=== PATIENT | male | born 1930 | race Two or more races ===

== ENCOUNTER 2016-12-24 10:28 | Inpatient (IN) | payer MEDICARE, MEDICAID ==
[~2016-12-24] VITALS: Ht 162.6 cm; Wt 67.1 kg
[2016-12-24] MEDS ORDERED: ASPIRIN 325 MG TABLET ONE (10:59)
[2016-12-24] MEDS ORDERED: ASPIRIN 325 MG TABLET PO ONE (11:00)
[2016-12-24 11:09] LABS: BASOPHILS # (AUTO) 0.1 /CMM (0.0-0.2); BASOPHILS % (AUTO) 1.7 % (0.0-2.0); EOSINOPHILS # (AUTO) 0.3 /CMM (0.0-0.7); EOSINOPHILS % (AUTO) 3.7 % (0.0-6.0); HEMATOCRIT 41 % (39-51); HEMOGLOBIN 13.5 g/dL (13.5-17.5); LYMPHOCYTES # (AUTO) 2.3 /CMM (0.8-4.8); LYMPHOCYTES % (AUTO) 31.4 % (20.0-44.0); MEAN CORPUSCULAR HEMOGLOBIN 29 PG (26.0-33.0); MEAN CORPUSCULAR HGB CONC 33 g/dl (31.0-36.0); MEAN CORPUSCULAR VOLUME 90 fL (80-96); MONOCYTES # (AUTO) 0.4 /CMM (0.1-1.30); MONOCYTES % (AUTO) 5.5 % (2.0-12.0); NEUTROPHILS # (AUTO) 4.2 /CMM (1.8-8.9); NEUTROPHILS % (AUTO) 57.7 % (43.0-81.0); PLATELET COUNT (AUTO) 209 /CMM (150-450); RDW COEFFICIENT OF VARIATION 13.4 (11.5-15.0); RED BLOOD CELL COUNT(AUTO) 4.61 MIL/uL (4.5-6.0); WHITE BLOOD COUNT (AUTO) 7.3 K/uL (4.3-11.0)
[2016-12-24 11:24] LABS: INR 1.11 (0.87-1.13); PROTHROMBIN TIME 11.6 SECS (9.5-12.7)
[2016-12-24 11:26] LABS: ALANINE AMINOTRANSFERASE 16 U/L (12-78); ALBUMIN 3.7 g/dL (3.4-5.0); ALKALINE PHOSPHATASE 79 U/L (46-116); ASPARTATE AMINOTRANSFERASE 24 U/L (15-37); BILIRUBIN,TOTAL 0.3 mg/dL (0.2-1.0); CALCIUM, SERUM 8.9 mg/dL (8.5-10.1); CARBON DIOXIDE 23 mmol/L (21-32); CHLORIDE 107 mmol/L (98-107); CREATININE 0.9 mg/dL (0.6-1.3); GLUCOSE 154 mg/dL (74-106); SODIUM SERUM 138 mmol/L (136-145); TOTAL PROTEIN, SERUM 7.3 g/dL (6.4-8.2); UREA NITROGEN, BLOOD 21 mg/dL (7-18)
[2016-12-24 11:28] LABS: TROPONIN I < 0.017 ng/mL (0.00-0.056)
[2016-12-24] MEDS ORDERED: DOXA2TAB2 PO (12:01)
[2016-12-24] MEDS ORDERED: DOCU-25 PO (12:01)
[2016-12-24] MEDS ORDERED: ASPI81TA2 PO (12:01)
[2016-12-24] MEDS ORDERED: METF500T4 PO (12:01)
[2016-12-24] MEDS ORDERED: GLIM1TAB2 PO (12:01)
[2016-12-24] MEDS ORDERED: SIMV40TA5 PO (12:01)
[2016-12-24 14:00] VITALS: BP 152/85
[2016-12-24] MEDS ORDERED: Z GUARD REMEDY 2 OZ OINT TP PRN (15:30)
[2016-12-24] MEDS ORDERED: HYDROCODONE/APAP 5/325MG 1 EACH TABLET PO PRN (15:30)
[2016-12-24] MEDS ORDERED: ONDANSETRON HCL/PF 4 MG/2 ML VIAL IVP PRN (15:30)
[2016-12-24] MEDS ORDERED: MAGNESIUM HYDROXIDE 30 ML UDC PO PRN (15:30)
[2016-12-24] MEDS ORDERED: MAG HYDROX/AL HYDROX/SIMETH 30 ML UDC PO PRN (15:30)
[2016-12-24] MEDS ORDERED: ACETAMINOPHEN 325 MG TABLET PO PRN (15:30)
[2016-12-24] MEDS: PANTOPRAZOLE 40 MG TABLET.DR PO SCH (15:47)
[2016-12-24] MEDS: ASPIRIN 81 MG TAB.CHEW PO SCH (15:47)
[2016-12-24] MEDS: DOCUSATE SODIUM 100 MG CAPSULE PO SCH (15:47)
[2016-12-24 16:00] VITALS: BP 154/78
[2016-12-24] MEDS: GLIMEPIRIDE 1 MG TABLET PO SCH (17:07)
[2016-12-24] MEDS: METFORMIN 500 MG TABLET PO SCH (17:22)
[2016-12-24] MEDS: SIMVASTATIN 40 MG TABLET PO SCH (18:20)
[2016-12-24] MEDS ORDERED: IV SET PRIMARY PUMP SET 1 EA INFUS.SET MC ONE (18:48)
[2016-12-24] MEDS: IV NS 0.9% 1,000 ML IV PRN (18:57)
[2016-12-24 20:00] VITALS: BP 153/64
[2016-12-24] MEDS ORDERED: DEXTROSE 50%-WATER 50 ML DISP.SYRIN IV PRN (21:30)
[2016-12-24] MEDS: ZOLPIDEM TARTRATE 5 MG TABLET PO PRN (21:36)
[2016-12-24] MEDS: BLOOD SUGAR DIAGNOSTIC 1 EACH STRIP VI SCH (21:39)
[2016-12-25] VITALS (9 sets, daily range): BP systolic 122–180; BP diastolic 54–68
[2016-12-25] MEDS: IV NS 0.9% 1,000 ML IV PRN ×2 (06:38→23:18)
[2016-12-25] MEDS: BLOOD SUGAR DIAGNOSTIC 1 EACH STRIP VI SCH ×4 (06:41→23:13)
[2016-12-25] MEDS: PANTOPRAZOLE 40 MG TABLET.DR PO SCH ×2 (06:57→09:26)
[2016-12-25 08:11] LABS: BASOPHILS % (AUTO) 0.4 % (0.0-2.0); EOSINOPHILS # (AUTO) 0.3 /CMM (0.0-0.7); EOSINOPHILS % (AUTO) 3.8 % (0.0-6.0); HEMATOCRIT 36 % (39-51); HEMOGLOBIN 12.3 g/dL (13.5-17.5); LYMPHOCYTES # (AUTO) 2.3 /CMM (0.8-4.8); LYMPHOCYTES % (AUTO) 31.4 % (20.0-44.0); MEAN CORPUSCULAR HEMOGLOBIN 31 PG (26.0-33.0); MEAN CORPUSCULAR HGB CONC 34 g/dl (31.0-36.0); MEAN CORPUSCULAR VOLUME 90 fL (80-96); MONOCYTES # (AUTO) 0.4 /CMM (0.1-1.30); MONOCYTES % (AUTO) 5.5 % (2.0-12.0); NEUTROPHILS # (AUTO) 4.3 /CMM (1.8-8.9); NEUTROPHILS % (AUTO) 58.9 % (43.0-81.0); PLATELET COUNT (AUTO) 185 /CMM (150-450); RDW COEFFICIENT OF VARIATION 14.3 (11.5-15.0); WHITE BLOOD COUNT (AUTO) 7.4 K/uL (4.3-11.0)
[2016-12-25] MEDS: INSULIN REGULAR, HUMAN 100 UNIT/ML 3 ML VIAL SQ PRN ×2 (08:20→12:31)
[2016-12-25 08:36] LABS: ALANINE AMINOTRANSFERASE 17 U/L (12-78); ALBUMIN 3.2 g/dL (3.4-5.0); ALKALINE PHOSPHATASE 63 U/L (46-116); ASPARTATE AMINOTRANSFERASE 17 U/L (15-37); BILIRUBIN,TOTAL 0.3 mg/dL (0.2-1.0); CALCIUM, SERUM 8.5 mg/dL (8.5-10.1); CARBON DIOXIDE 24 mmol/L (21-32); CHLORIDE 110 mmol/L (98-107); CREATININE 0.7 mg/dL (0.6-1.3); GLUCOSE 137 mg/dL (74-106); PHOSPHORUS 2.5 mg/dL (2.5-4.9); POTASSIUM 3.9 mmol/L (3.5-5.1); SODIUM SERUM 143 mmol/L (136-145); TOTAL PROTEIN, SERUM 6.3 g/dL (6.4-8.2); UREA NITROGEN, BLOOD 19 mg/dL (7-18)
[2016-12-25 08:38] LABS: CHOLESTEROL 139 mg/dL (<200); HDL CHOLESTEROL 29 mg/dL (40-60); LDL 76 mg/dL (0-99); THYROID STIMULATING HORMONE 2.914 uIU/mL (0.358-3.74); TRIGLYCERIDES 167 mg/dL (30-150)
[2016-12-25] MEDS ORDERED: DOXAZOSIN MESYLATE (1 MG) 1 MG TABLET PO SCH (09:00)
[2016-12-25] MEDS: DOCUSATE SODIUM 100 MG CAPSULE PO SCH (09:24)
[2016-12-25] MEDS: ASPIRIN 81 MG TAB.CHEW PO SCH (09:25)
[2016-12-25] MEDS: METFORMIN 500 MG TABLET PO SCH ×2 (09:25→17:00)
[2016-12-25] MEDS: GLIMEPIRIDE 1 MG TABLET PO SCH ×2 (09:26→17:00)
[2016-12-25] MEDS: SIMVASTATIN 40 MG TABLET PO SCH (18:47)
[2016-12-25] MEDS: ZOLPIDEM TARTRATE 5 MG TABLET PO PRN (21:40)
[2016-12-25] MEDS: *INSULIN REGULAR(HUMULIN R)HUM 100 UNIT/ML VIAL SQ PRN (23:24)
[2016-12-26] VITALS (7 sets, daily range): BP systolic 133–174; BP diastolic 68–81
[2016-12-26] MEDS: BLOOD SUGAR DIAGNOSTIC 1 EACH STRIP VI SCH ×4 (06:08→22:01)
[2016-12-26] MEDS: GLIMEPIRIDE 1 MG TABLET PO SCH ×2 (08:10→16:49)
[2016-12-26] MEDS: DOCUSATE SODIUM 100 MG CAPSULE PO SCH (08:10)
[2016-12-26] MEDS: METFORMIN 500 MG TABLET PO SCH ×2 (08:11→16:50)
[2016-12-26] MEDS: ASPIRIN 81 MG TAB.CHEW PO SCH (08:11)
[2016-12-26] MEDS: INSULIN REGULAR, HUMAN 100 UNIT/ML 3 ML VIAL SQ PRN ×2 (12:19→17:00)
[2016-12-26] MEDS: IV NS 0.9% 1,000 ML IV PRN (14:45)
[2016-12-26] MEDS: SIMVASTATIN 40 MG TABLET PO SCH (18:33)
[2016-12-26] MEDS: ZOLPIDEM TARTRATE 5 MG TABLET PO PRN (20:53)
[2016-12-26] MEDS: *INSULIN REGULAR(HUMULIN R)HUM 100 UNIT/ML VIAL SQ PRN (22:02)
[2016-12-27] VITALS (10 sets, daily range): BP systolic 96–169; BP diastolic 65–87
[2016-12-27] MEDS: BLOOD SUGAR DIAGNOSTIC 1 EACH STRIP VI SCH ×4 (06:30→21:07)
[2016-12-27] MEDS: PANTOPRAZOLE 40 MG TABLET.DR PO SCH (07:30)
[2016-12-27] MEDS: GLIMEPIRIDE 1 MG TABLET PO SCH ×2 (08:05→17:00)
[2016-12-27] MEDS: DOCUSATE SODIUM 100 MG CAPSULE PO SCH (08:05)
[2016-12-27] MEDS: ASPIRIN 81 MG TAB.CHEW PO SCH (08:05)
[2016-12-27] MEDS: METFORMIN 500 MG TABLET PO SCH ×2 (08:05→17:00)
[2016-12-27] MEDS: IV NS 0.9% 1,000 ML IV PRN (09:29)
[2016-12-27] MEDS ORDERED: LIDOCAINE HCL/PF 1% 30 ML SDV ONE (11:29)
[2016-12-27] MEDS ORDERED: IOHEXOL 50 ML IV ONE (11:29)
[2016-12-27] MEDS ORDERED: FENTANYL PF 100MCG/2ML AMPUL ONE (11:36)
[2016-12-27] MEDS ORDERED: MIDAZOLAM HCL 2 MG/2ML VIAL ONE (11:36)
[2016-12-27] MEDS: SIMVASTATIN 40 MG TABLET PO SCH (17:00)
[2016-12-27] MEDS: INSULIN REGULAR, HUMAN 100 UNIT/ML 3 ML VIAL SQ PRN (17:22)
[2016-12-27] MEDS ORDERED: SECONDARY IV SET 1 EA INFUS.SET MC ONE (20:14)
[2016-12-27] MEDS: ANCEF 1 GM/50 ML D5W IV SCH ×2 (20:20)
[2016-12-27] MEDS: ZOLPIDEM TARTRATE 5 MG TABLET PO PRN (20:59)
[2016-12-28] VITALS: BP 137/76
[2016-12-28] MEDS: IV NS 0.9% 1,000 ML IV PRN (01:51)
[2016-12-28 04:00] VITALS: BP 137/78
[2016-12-28] MEDS: BLOOD SUGAR DIAGNOSTIC 1 EACH STRIP VI SCH (05:56)
[2016-12-28] MEDS: ANCEF 1 GM/50 ML D5W IV SCH ×2 (05:56)
[2016-12-28 07:00] VITALS: BP 140/68
[2016-12-28] MEDS: INSULIN REGULAR, HUMAN 100 UNIT/ML 3 ML VIAL SQ PRN (07:27)
[2016-12-28] MEDS: GLIMEPIRIDE 1 MG TABLET PO SCH (08:47)
[2016-12-28] MEDS: PANTOPRAZOLE 40 MG TABLET.DR PO SCH (08:47)
[2016-12-28] MEDS: DOCUSATE SODIUM 100 MG CAPSULE PO SCH (08:47)
[2016-12-28] MEDS: METFORMIN 500 MG TABLET PO SCH (08:47)
[2016-12-28] MEDS: ASPIRIN 81 MG TAB.CHEW PO SCH (08:47)
== END 2016-12-28 11:00 | disposition home or self-care (01) | DRG 243 ==
LOC: ER 10:30 → TELE 13:37 → MED 12-28 10:20
PROVIDERS: ADMIT Internal Medicine; ATTEND Internal Medicine
PROC: 02H63JZ Insertion of Pacemaker Lead into Right Atrium, Percutaneous Approach (ICD-10-PCS; 2016-12-27)
PROC: 02HK3JZ Insertion of Pacemaker Lead into Right Ventricle, Percutaneous Approach (ICD-10-PCS; 2016-12-27)
PROC: 0JH606Z Insertion of Pacemaker, Dual Chamber into Chest Subcutaneous Tissue and Fascia, Open Approach (ICD-10-PCS; principal; 2016-12-27 12:01)
DX: I49.5 Sick sinus syndrome (principal); I45.89 Other specified conduction disorders; I10 Essential (primary) hypertension; E78.5 Hyperlipidemia, unspecified; J44.9 Chronic obstructive pulmonary disease, unspecified; E86.9 Volume depletion, unspecified; E11.9 Type 2 diabetes mellitus without complications; G90.9 Disorder of the autonomic nervous system, unspecified
CPT/HCPCS: 36415; 71010-TC; 80048-TC; 80053-TC; 80061-TC; 80076-TC; 82962-TC; 83735-TC; 84100-TC; 84443-TC; 84484-TC; 85025-TC; 85730-TC; 87081-TC; 93307-TC; A4606; J0690; J1815; J2250; J3010; J3490; J7030; J7060; Q9967; Z7610